=== PATIENT | female | born 1985 | race African-American/Black ===

== ENCOUNTER 2023-06-24 05:27 | Emergency (ER) | payer SELFPAY ==
[~2023-06-24] VITALS: Ht 157.5 cm; Wt 109.0 kg
[2023-06-24 06:44] VITALS: BP 146/84; PULSE 129; RESP 22; TEMP 98; O2SAT 97
[2023-06-24] MEDS ORDERED: HYDROcodone-ACET 5/325MG TAB PO ONE (07:15)
[2023-06-24] MEDS ORDERED: CEPH500C PO (07:44)
[2023-06-24] MEDS ORDERED: IBUP-1456 PO (07:44)
== END 2023-06-24 07:49 | disposition home or self-care (01) ==
LOC: ER 05:27
DX: S62.617A Displaced fracture of proximal phalanx of left little finger, initial encounter for closed fracture (principal); S63.287A Dislocation of proximal interphalangeal joint of left little finger, initial encounter; S46.912A Strain of unspecified muscle, fascia and tendon at shoulder and upper arm level, left arm, initial encounter; S80.212A Abrasion, left knee, initial encounter; S80.211A Abrasion, right knee, initial encounter; Z88.8 Allergy status to other drugs, medicaments and biological substances; V29.99XA Rider (driver) (passenger) of other motorcycle injured in unspecified traffic accident, initial encounter; Y93.89 Activity, other specified; Y92.89 Other specified places as the place of occurrence of the external cause; Y99.8 Other external cause status
CPT/HCPCS: 26770; 73030; 73130; 73140

== ENCOUNTER 2023-10-15 18:30 | Emergency (ER) | payer BC, OTHER ==
[~2023-10-15] VITALS: Ht 157.5 cm; Wt 100.0 kg
[~2023-10-15 18:30] MED LIST: CEPH500C PO; IBUP-1456 PO
[2023-10-15] MEDS ORDERED: ALBUTEROL SULF 2.5 MG/0.5ML(0.5%) NEB SOLN NEB ONE (22:30)
[2023-10-15] MEDS ORDERED: IPRATROPIUM BROM 0.5 MG/2.5ML INH SOL NEB ONE (22:30)
[2023-10-15] MEDS ORDERED: DexAMETHasone SOD PHOS 10MG/1ML VIAL INJ IM ONE (22:30)
[2023-10-15] MEDS ORDERED: hydrOXYzine 25 MG TAB or CAP PO ONE (22:30)
[2023-10-15] MEDS ORDERED: PRED20TA2 PO (23:36)
[2023-10-15] MEDS ORDERED: AZITTAB PO (23:36)
[2023-10-15] MEDS ORDERED: HYDR-3682 PO (23:36)
[2023-10-15 23:42] VITALS: BP 138/80; TEMP 97.9; O2SAT 98
[2023-10-16 00:14] VITALS: PULSE 101; RESP 20
== END 2023-10-16 00:15 | disposition home or self-care (01) ==
LOC: EDBD 18:30 → EDUNIT# 18:30 → ER 18:30
DX: J18.9 Pneumonia, unspecified organism (principal); F41.9 Anxiety disorder, unspecified
CPT/HCPCS: 71046; 93005; 94640; 96372; 99283; J1100; J7644

== ENCOUNTER 2023-10-16 16:39 | Inpatient (IN) | payer BC, MEDICAID ==
[~2023-10-16] VITALS: Ht 170.2 cm; Wt 116.7 kg
[~2023-10-16 16:39] MED LIST changes: +AZITTAB PO; +HYDR-3682 PO; +PRED20TA2 PO
[2023-10-16] MEDS ORDERED: BUDESONIDE (INHALATION) 0.5 MG/2 ML NEB NEB ONE (17:45)
[2023-10-16] MEDS ORDERED: DexAMETHasone SOD PHOS 10MG/1ML VIAL INJ IV ONE (17:45)
[2023-10-16] MEDS ORDERED: ALBUTEROL SULF 2.5 MG/0.5ML(0.5%) NEB SOLN ONE (17:58)
[2023-10-16] MEDS ORDERED: LEVALBUTEROL HCL 1.25 MG/3 ML NEB NEB SCH (18:00)
[2023-10-16 18:32] LABS: Base Excess -5.3 mmol/L (-2.0-2.0)
[2023-10-16 19:19] LABS: Basophils # (auto) 0 10 ^3/uL (0-0.2); Basophils % (auto) 0.3 % (0.0-2.0); Eosinophils # (auto) 0 10 ^3/uL (0-0.8); Hematocrit 37.6 % (36.0-46.0); Hemoglobin 11.6 g/dL (12.2-16.2); Lymphocytes # (auto) 0.8 10 ^3/uL (0.4-5.4); Lymphocytes % (auto) 10.1 % (10.0-50.0); Mean Corpuscular Hemoglobin 24.4 pg (28.0-32.0); Mean Corpuscular Volume 78.6 fL (80.0-100.0); Monocytes # (auto) 0.4 10 ^3/uL (0-1.3); Monocytes % (auto) 5.5 % (0.0-12.0); Neutrophils # (auto) 6.6 10 ^3/uL (1.6-8.6); Neutrophils % (auto) 84.1 % (37.0-80.0); Nucleated Red Blood Cells % 0.1 %; Red Blood Cells 4.78 10^6/uL (4.0-5.20); Red Cell Distribution Width 15.7 % (11.8-14.3); White Blood Cell 7.9 10^3/uL (4.4-10.8)
[2023-10-16 19:38] LABS: Alanine Aminotransferase 32 U/L (7-40); Albumin 4.7 g/dL (3.2-4.8); Alkaline Phosphatase 89 U/L (46-116); Anion Gap 14 (5-15); Aspartate Aminotransferase 12 U/L (13-40); BUN/Creatinine Ratio 14.6 (10.0-20.0); Blood Urea Nitrogen 15 mg/dL (9-23); Calcium 9.6 mg/dL (8.7-10.4); Carbon Dioxide 18 mmol/L (20-30); Chloride 106 mmol/L (98-107); Glucose 201 mg/dL (74-106); Magnesium 2.1 mg/dL (1.6-2.6); Potassium 3.9 mmol/L (3.5-5.1); Sodium 138 mmol/L (136-145)
[2023-10-16 19:39] LABS: Bilirubin, Total 0.3 mg/dL (0.2-1.0); Total Protein 7.7 g/dL (5.7-8.2)
[2023-10-16 19:41] LABS: Lactic Acid w/Reflex 4.9 mmol/L (0.4-2.0)
[2023-10-16] MEDS ORDERED: SODIUM CHLORIDE 0.9% 1,000 ML IV ONE (20:00)
[2023-10-16 20:58] VITALS: BP 144/85; PULSE 125; RESP 20; O2SAT 99
[2023-10-16] MEDS ORDERED: IPRATROPIUM BROM 0.5 MG/2.5ML INH SOL NEB SCH ×2 (21:00→22:00)
[2023-10-16] MEDS ORDERED: ALBUTEROL SULF 2.5 MG/0.5ML(0.5%) NEB SOLN NEB SCH ×2 (21:00→22:00)
[2023-10-16] MEDS ORDERED: ONDANSETRON HCL 4 MG/2 ML VIAL IV PRN (21:45)
[2023-10-16] MEDS ORDERED: ACETAMINOPHEN 325 MG TAB PO PRN (21:45)
[2023-10-16] MEDS ORDERED: DOCUSATE SOD 100 MG CAP PO PRN (21:45)
[2023-10-16] MEDS ORDERED: HYDROcodone-ACET 5/325MG TAB PO PRN (21:45)
[2023-10-16] MEDS ORDERED: PIPERACILLIN-TAZOB 3.375GM 100 ML IV ONE (22:00)
[2023-10-16] MEDS ORDERED: DEXTROSE (50%) 50ML SYRG IV PRN (22:00)
[2023-10-16] MEDS ORDERED: LACTATED RINGER'S 1,000 ML IV ONE ×2 (22:00→22:45)
[2023-10-16 22:23] LABS: Rapid Influenza A Negative (Negative); Rapid Influenza B Negative (Negative)
[2023-10-16 22:24] LABS: COVID19 ANTIGEN SOFIA FIA NEGATIVE (NEGATIVE)
[2023-10-16 23:44] LABS: Lactic Acid w/Reflex 3.8 mmol/L (0.4-2.0)
[2023-10-17] VITALS (15 sets, daily range): BP systolic 107–125; BP diastolic 66–74; PULSE 67–150; RESP 16–38; TEMP 97.9–98; O2SAT 94–100
[2023-10-17] MEDS: ACCU-CHEK COMFORT CURVE STRIP VI SCH ×5 (01:17→22:06)
[2023-10-17] MEDS: InsuLIN REG 1unit/0.01ml Soln (100units/ml) SC SCH ×5 (01:18→22:00)
[2023-10-17] MEDS: SODIUM CHLOR 0.9% PF (SALINE LOCK) 10ML VIAL/SYR IV SCH ×4 (01:24→22:20)
[2023-10-17 03:52] LABS: Amphetamine Screen, Urine Neg (NEGATIVE); Barbiturate Scree,Urine Neg (NEGATIVE); Benzodiazephine Screen, Urine Neg (NEGATIVE); Cocaine Screen, Urine Neg (NEGATIVE); Opiate Scree,Urine Neg (NEGATIVE); Phencyclidine Screen, Urine Neg (NEGATIVE)
[2023-10-17 03:53] LABS: Cannabinoid Screen, Urine Neg (NEGATIVE); Urine Bacteria NONE SEEN /hpf (None Seen); Urine Blood Negative /uL (Negative); Urine Clarity Clear (Clear); Urine Color Colorless (Yellow); Urine Protein, UAD Negative (Negative); Urine Specific Gravity 1.007 (1.001-1.035); Urine Urobilinogen Normal (Negative); Urine WBC 2 /hpf (0 - 5); Urine pH 5.5 (5.0-8.0)
[2023-10-17] MEDS: PIPERACILLIN-TAZOB 3.375GM 100 ML IV SCH ×4 (04:20→22:20)
[2023-10-17] MEDS: ENOXAPARIN SOD 40 MG/0.4 ML SYRINGE SC SCH (10:00)
[2023-10-17] MEDS: ALBUTEROL SULF 2.5 MG/0.5ML(0.5%) NEB SOLN NEB SCH ×3 (10:17→18:10)
[2023-10-17] MEDS: IPRATROPIUM BROM 0.5 MG/2.5ML INH SOL NEB SCH ×3 (10:17→18:10)
[2023-10-17] MEDS: FAMOTIDINE 20 MG TAB PO SCH (12:06)
[2023-10-17] MEDS ORDERED: LORazepam 0.5 MG TAB PO PRN ×2 (13:45→18:00)
[2023-10-17] MEDS: guaiFENesin-DM 100/10mg/5ml SYR PO PRN (17:40)
[2023-10-17] MEDS ORDERED: LORazepam 0.5 MG TAB PO ONE (18:00)
[2023-10-17] MEDS ORDERED: MELATONIN 5 MG TAB PO PRN (18:15)
[2023-10-18] VITALS (10 sets, daily range): BP systolic 129–162; BP diastolic 70–90; PULSE 68–98; RESP 16–18; TEMP 97.4–98.9; O2SAT 93–100
[2023-10-18] MEDS: PIPERACILLIN-TAZOB 3.375GM 100 ML IV SCH ×3 (05:16→15:37)
[2023-10-18] MEDS: guaiFENesin-DM 100/10mg/5ml SYR PO PRN (05:18)
[2023-10-18] MEDS: SODIUM CHLOR 0.9% PF (SALINE LOCK) 10ML VIAL/SYR IV SCH ×2 (06:00→15:39)
[2023-10-18 06:23] LABS: Basophils # (auto) 0 10 ^3/uL (0-0.2); Basophils % (auto) 0.2 % (0.0-2.0); Eosinophils # (auto) 0 10 ^3/uL (0-0.8); Monocytes # (auto) 0.8 10 ^3/uL (0-1.3); White Blood Cell 6.5 10^3/uL (4.4-10.8)
[2023-10-18 06:26] LABS: Hematocrit 34.1 % (36.0-46.0); Hemoglobin 10.9 g/dL (12.2-16.2); Lymphocytes # (auto) 1.4 10 ^3/uL (0.4-5.4); Lymphocytes % (auto) 22.2 % (10.0-50.0); Mean Corpuscular Hemoglobin 25.2 pg (28.0-32.0); Mean Corpuscular Hgb Conc. 31.8 g/dL (32.0-36.0); Mean Corpuscular Volume 79.2 fL (80.0-100.0); Monocytes % (auto) 12.1 % (0.0-12.0); Neutrophils # (auto) 4.3 10 ^3/uL (1.6-8.6); Neutrophils % (auto) 65.5 % (37.0-80.0); Nucleated Red Blood Cells % 0.1 %; Red Blood Cells 4.31 10^6/uL (4.0-5.20); Red Cell Distribution Width 15.9 % (11.8-14.3)
[2023-10-18] MEDS: IPRATROPIUM BROM 0.5 MG/2.5ML INH SOL NEB SCH ×3 (06:28→11:25)
[2023-10-18] MEDS: ALBUTEROL SULF 2.5 MG/0.5ML(0.5%) NEB SOLN NEB SCH ×3 (06:28→11:27)
[2023-10-18 06:30] LABS: Calcium 9.1 mg/dL (8.7-10.4); Chloride 106 mmol/L (98-107); Potassium 4.2 mmol/L (3.5-5.1); Sodium 139 mmol/L (136-145)
[2023-10-18 06:31] LABS: Anion Gap 8 (5-15); Carbon Dioxide 25 mmol/L (20-30)
[2023-10-18 06:36] LABS: BUN/Creatinine Ratio 7.7 (10.0-20.0); Blood Urea Nitrogen 6 mg/dL (9-23); Glucose 104 mg/dL (74-106)
[2023-10-18] MEDS: InsuLIN REG 1unit/0.01ml Soln (100units/ml) SC SCH ×2 (06:39→11:30)
[2023-10-18] MEDS: ACCU-CHEK COMFORT CURVE STRIP VI SCH ×2 (06:39→12:44)
[2023-10-18] MEDS: FAMOTIDINE 20 MG TAB PO SCH (10:25)
[2023-10-18] MEDS: ENOXAPARIN SOD 40 MG/0.4 ML SYRINGE SC SCH (10:25)
[2023-10-18] MEDS ORDERED: METH4PAK PO ×3 (10:41→14:52)
[2023-10-18] MEDS ORDERED: ALBUAER3 IN ×2 (10:41)
[2023-10-18] MEDS ORDERED: DOXY-448 PO ×3 (10:41→14:52)
[2023-10-18] MEDS ORDERED: LORA-1121 PO ×2 (10:41)
[2023-10-18] MEDS ORDERED: LORA-655 PO (14:52)
== END 2023-10-18 15:00 | disposition home or self-care (01) | DRG 178 ==
LOC: ER 16:39 → EDBD 16:39 → OVERFLOW 21:47 → CENTRAL 10-17 11:30
PROVIDERS: ADMIT Internal Medicine; ATTEND Nurse Practitioner Acute Care
DX: J15.69 Pneumonia due to other Gram-negative bacteria (principal); E87.20 Acidosis, unspecified; Z68.41 Body mass index [BMI] 40.0-44.9, adult; E66.9 Obesity, unspecified; J04.0 Acute laryngitis; F41.9 Anxiety disorder, unspecified; J15.9 Unspecified bacterial pneumonia; Z20.822 Contact with and (suspected) exposure to COVID-19
CPT/HCPCS: 36415; 36600; 71045; 80048; 80053; 80307; 81001; 81025; 82805; 82962; 83605; 83735; 83880; 84484; 85025; 85379; 87040; 87426; 87804; 93005; 94640; G0378; J1100; J1815; J2543

== ENCOUNTER 2023-12-05 09:43 | Emergency (ER) | payer BC, MEDICAID ==
[~2023-12-05] VITALS: Ht 157.5 cm; Wt 115.7 kg
[~2023-12-05 09:43] MED LIST changes: -AZITTAB PO; -CEPH500C PO; +DOXY-448 PO; -HYDR-3682 PO; -IBUP-1456 PO; +LORA-655 PO; +METH4PAK PO; -PRED20TA2 PO
[2023-12-05 10:07] VITALS: BP 152/94; PULSE 118; RESP 20; TEMP 97.9; O2SAT 98
[2023-12-05 11:23] LABS: COVID19 ANTIGEN SOFIA FIA NEGATIVE (NEGATIVE)
[2023-12-05 11:24] LABS: Rapid Influenza A Negative (Negative); Rapid Influenza B Negative (Negative)
[2023-12-05] MEDS ORDERED: PROM1SOL4 PO (11:32)
== END 2023-12-05 11:32 | disposition home or self-care (01) ==
LOC: ER 09:43
DX: B34.9 Viral infection, unspecified (principal); J06.9 Acute upper respiratory infection, unspecified; Z20.822 Contact with and (suspected) exposure to COVID-19
CPT/HCPCS: 36415; 71046; 87426; 87804

== ENCOUNTER 2023-12-09 10:00 | Emergency (ER) | payer MEDICAID, OTHER ==
[~2023-12-09] VITALS: Ht 157.5 cm; Wt 114.4 kg
[~2023-12-09 10:00] MED LIST changes: +PROM1SOL4 PO
[2023-12-09] MEDS: SODIUM CHLORIDE 0.9% 1,000 ML IV ONE (11:28)
[2023-12-09] MEDS: KETOROLAC TROMETH 30 MG/ML 1ML VIAL IV ONE (12:37)
[2023-12-09] MEDS: DexAMETHasone SOD PHOS 10MG/1ML VIAL INJ IV ONE (12:38)
[2023-12-09] MEDS: cefTRIAXone 1GM/50ML D5W 50 ML IV ONE (12:39)
[2023-12-09 16:07] LABS: COVID19 ANTIGEN SOFIA FIA NEGATIVE (NEGATIVE)
[2023-12-09] MEDS: MORPHINE SULFATE INJ 2 MG/ml SYRG IV ONE (16:30)
[2023-12-09 16:53] VITALS: BP 149/92; PULSE 104; RESP 18; TEMP 97.9; O2SAT 99
== END 2023-12-09 17:09 | disposition short-term general hospital (02) ==
LOC: ER 10:00
DX: J36 Peritonsillar abscess (principal); Z88.6 Allergy status to analgesic agent; Z20.822 Contact with and (suspected) exposure to COVID-19
CPT/HCPCS: 36415; 87426; 96361; 96365; 96375; 99285; J0696; J1100; J1885; J2270; J7030